=== PATIENT | male | born 1945 | race Two or more races ===

== ENCOUNTER 2020-12-14 10:26 | Outpatient (CLI) | payer OTHER | END 2020-12-14 10:49 | disposition home or self-care (01) | LOC: TOM 10:26 | PROVIDERS: ATTEND Internal Medicine Pulmonary Disease | DX: J98.6 Disorders of diaphragm (principal); J98.11 Atelectasis; Z87.891 Personal history of nicotine dependence; R06.02 Shortness of breath ==

== ENCOUNTER 2021-10-13 10:44 | Emergency (ER) | payer OTHER ==
[~2021-10-13] VITALS: Ht 177.8 cm; Wt 81.6 kg
[2021-10-13] MEDS ORDERED: EZETIMIBE10 MG PO (11:09)
[2021-10-13] MEDS ORDERED: DIVALPROEX SOD500 M1 PO (11:09)
[2021-10-13] MEDS ORDERED: OMEPRAZOLE20 MG PO (11:10)
[2021-10-13] MEDS ORDERED: AMLODIPINE BESYL5 MG PO (11:10)
[2021-10-13] MEDS ORDERED: BICALUTAMIDE50 MG PO (11:10)
[2021-10-13] MEDS ORDERED: BACLOFEN10 MG PO (11:10)
[2021-10-13] MEDS ORDERED: ATORVASTATIN CA40 MG PO (11:11)
[2021-10-13] MEDS ORDERED: METOPROLOL SUC100 MG PO (11:11)
[2021-10-13] MEDS ORDERED: IRBESARTAN-HCT1 EAC1 (11:11)
[2021-10-13] MEDS ORDERED: NORVASC2.5 MG PO (11:11)
== END 2021-10-13 12:57 | disposition home or self-care (01) ==
LOC: ER 10:44
DX: S70.02XA Contusion of left hip, initial encounter (principal); S70.01XA Contusion of right hip, initial encounter; R10.2 Pelvic and perineal pain; U07.1 COVID-19; B34.9 Viral infection, unspecified; W01.198A Fall on same level from slipping, tripping and stumbling with subsequent striking against other object, initial encounter; Y93.89 Activity, other specified; Y92.012 Bathroom of single-family (private) house as the place of occurrence of the external cause; Y99.8 Other external cause status

== ENCOUNTER 2022-07-10 22:54 | Emergency (ER) | payer OTHER ==
[~2022-07-10] VITALS: Ht 180.3 cm; Wt 81.6 kg
[~2022-07-10 22:54] MED LIST: AMLODIPINE BESYL5 MG PO; ATORVASTATIN CA40 MG PO; BACLOFEN10 MG PO; BICALUTAMIDE50 MG PO; DIVALPROEX SOD500 M1 PO; EZETIMIBE10 MG PO; IRBESARTAN-HCT1 EAC1; METOPROLOL SUC100 MG PO; NORVASC2.5 MG PO; OMEPRAZOLE20 MG PO
[2022-07-11] MEDS ORDERED: CEFDINIR300 MG PO (04:40)
== END 2022-07-11 04:47 | disposition home or self-care (01) ==
LOC: ER 22:54
DX: N39.0 Urinary tract infection, site not specified (principal); R53.1 Weakness; I10 Essential (primary) hypertension; Z20.822 Contact with and (suspected) exposure to COVID-19; I25.2 Old myocardial infarction